=== PATIENT | female | born 1950 | race Caucasian/White ===

== ENCOUNTER → 2018-01-20 | Outpatient (CLI) | payer OTHER, MEDICARE | LOC: FIMAGING 18:02 | PROVIDERS: ATTEND Physician Assistant | DX: J98.09 Other diseases of bronchus, not elsewhere classified (principal) ==

== ENCOUNTER → 2019-04-09 | Outpatient (CLI) | payer OTHER, MEDICARE | LOC: BMCIMAGING 07:52 ==